=== PATIENT | male | born 1985 | race Caucasian/White ===

== ENCOUNTER 2018-06-04 17:01 | Emergency (ER) | payer SELFPAY ==
[2018-06-04] MEDS ORDERED: Sodium Chloride 0.9% 10 ML Syringe FLUSH PRN (17:14)
[2018-06-04] MEDS ORDERED: HYDROmorphone 2 MG/ML SDV IVPUSH ONE (17:15)
[2018-06-04] MEDS ORDERED: Pantoprazole 40 MG Vial IVPUSH ONE (17:15)
[2018-06-04] MEDS ORDERED: Promethazine 12.5 MG in Sodium Chloride 0.9% 50 ML IV ONE (17:17)
[2018-06-04] MEDS ORDERED: Sodium Chloride 0.9% 1,000 ML IV ONE (17:20)
--- NOTE | 2018-06-04 17:25 | EDM.PDOC ---
ED HPI GENERAL MEDICAL PROBLEM - General Chief Complaint: Abdominal Pain Stated Complaint: SEVERE ABDOMINAL PAIN Time Seen by Provider: 06/04/18 17:21 Source of Information: Reports: Patient History Limitations: Reports: No Limitations - History of Present Illness INITIAL COMMENTS - FREE TEXT/NARRATIVE: Presents with RUQ abdominal pain since yesterday, worse x 3 hours associated with N/V/D. Similar symptoms qmonth, but never this severe. Has not sought medical attention regarding this issue. No prior h/o abdominal surgeries. Duration: Day(s): (2) Location: Reports: Abdomen Quality: Reports: Dull Severity: Moderate Associated Symptoms: Reports: Nausea/Vomiting RUQ Pain Score (Numeric/FACES): 10 - Related Data Allergies Allergy/AdvReac Type Severity Reaction Status Date / Time codeine Allergy Hives Verified 06/04/18 18:00 Home Meds: Home Meds Acetaminophen/HYDROcodone [[place] 325-5 MG] 1 - 2 tab PO Q6H PRN #15 tab [Rx] Ciprofloxacin HCl [Cipro] 500 mg PO BID 7 Days #14 tablet 06/04/18 [Rx] Pantoprazole Sodium [Protonix] 40 mg PO DAILY #15 tab 06/04/18 [Rx] Promethazine [Phenergan] 25 mg PO Q6H PRN #12 tab 06/04/18 [Rx] metroNIDAZOLE [Flagyl] 500 mg PO TID 7 Days #21 tab 06/04/18 [Rx] Past Medical History - Past Health History Medical/Surgical History: Denies Medical/Surgical History Psychiatric History: Reports: Anxiety, Depression, Mood Swings Social & Family History - Tobacco Use Smoking Status *Q: Current Every Day Smoker Tobacco Use Within Last Twelve Months: Cigarettes - Alcohol Use Alcohol Use History: Yes Alcohol Use in Last Twelve Months: Yes Alcohol Use Frequency: Rarely - Recreational Drug Use Recreational Drug Use: No ED ROS GENERAL - Review of Systems Review Of Systems: ROS reveals no pertinent complaints other than HPI. ED EXAM, GI/ABD - Physical Exam Exam: See Below Exam Limited By: No Limitations General Appearance: Alert, WD/WN, Mild Distress Ears: Normal External Exam Nose: Normal Inspection Throat/Mouth: No Airway Compromise Head: Atraumatic, Normocephalic Neck: Supple Respiratory/Chest: No Respiratory Distress, Lungs Clear, Normal Breath Sounds Cardiovascular: Regular Rate, Rhythm, No Murmur, No Rub GI/Abdominal Exam: Normal Bowel Sounds, Soft, No Distention, No Mass, Tender ( moderate RUQ) Back Exam: Full Range of Motion Extremities: Normal Inspection Neurological: Alert, Oriented, Normal Cognition Psychiatric: Normal Affect, Normal Mood Skin Exam: Warm, Dry, Intact, Normal Color, No Rash Course - Vital Signs Last Recorded V/S: Last Vital Signs Temp 36.4 C 06/04/18 17:01 Pulse 58 L 06/04/18 17:01 Resp 20 06/04/18 17:01 BP 158/111 H 06/04/18 17:01 Pulse Ox 97 06/04/18 17:01 - Orders/Labs/Meds Orders: Active Orders 24 hr Category Date Time Status Abdomen Pelvis w Cont [CT] Stat Exams 06/04/18 17:26 Taken UA W/MICROSCOPIC [URIN] Stat Lab 06/04/18 18:36 Ordered Ciprofloxacin [Ciprofloxacin HCl] Med 06/04/18 18:48 Once 500 mg PO ONETIME ONE Sodium Chloride 0.9% [Saline Flush] Med 06/04/18 17:14 Active 10 ml FLUSH ASDIRECTED PRN metroNIDAZOLE [Flagyl] Med 06/04/18 18:50 Once 500 mg PO ONETIME ONE Saline Lock Insert [OM.PC] Routine Oth 06/04/18 17:14 Ordered Medication Orders Sodium Chloride (Saline Flush) 10 ml FLUSH ASDIRECTED PRN PRN Reason: Keep Vein Open Last Admin: 06/04/18 17:32 Dose: 10 ml Labs: Laboratory Tests 06/04/18 06/04/18 06/04/18 Range/Units 17:24 17:24 17:24 WBC 12.6 H (4.5-12.0) X10-3/uL RBC 5.43 (4.30-5.75) x10(6)uL Hgb 17.1 H (11.5-15.5) g/dL Hct 49.7 (30.0-51.3) % MCV 91.6 (80-96) fL MCH 31.5 (27.7-33.6) pg MCHC 34.4 (32.2-35.4) g/dL RDW 11.8 (11.5-15.5) % Plt Count 304 (125-369) X10(3)uL MPV 8.3 (7.4-10.4) fL Neut % (Auto) 77.8 (46-82) % Lymph % (Auto) 15.3 (13-37) % [place] % (Auto) 5.7 (4-12) % Eos % (Auto) 1 (1.0-5.0) % Baso % (Auto) 0 (0-2) % Neut # (Auto) 9.9 H (1.6-8.3) # Lymph # (Auto) 1.9 (0.6-5.0) # [place] # (Auto) 0.7 (0.0-1.3) # Eos # (Auto) 0.1 (0.0-0.8) # Baso # (Auto) 0.0 (0.0-0.2) # PT 10.0 (8.7-11.1) INR 1.03 (0.89-1.13) Sodium 143 (135-145) mmol/L Potassium 3.9 (3.5-5.3) mmol/L Chloride 106 (100-110) mmol/L Carbon Dioxide 25 (21-32) mmol/L BUN 9 (7-18) mg/dL Creatinine 0.8 (0.70-1.30) mg/dL Est Cr Clr Drug Dosing TNP Estimated GFR (MDRD) > 60 (>60) BUN/Creatinine Ratio 11.3 (9-20) Glucose 107 (80-116) mg/dL Calcium 9.3 (8.6-10.2) mg/dL Total Bilirubin 0.3 (0.1-1.3) mg/dL AST 18 (5-25) IU/L ALT 40 H (12-36) U/L Alkaline Phosphatase 43 L (56-112) IU/L Total Protein 7.8 (6.0-8.0) g/dL Albumin 3.8 (3.5-5.2) g/dL Globulin 4.0 g/dL Albumin/Globulin Ratio 1.0 Amylase (25-115) U/L Urine Color (YELLOW) Urine Appearance (CLEAR) Urine pH (5.0-6.5) Ur Specific [place] (1.010-1.025) Urine Protein (NEGATIVE) mg/dL Urine Glucose (UA) (NEGATIVE) mg/dL Urine Ketones (NEGATIVE) mg/dL Urine Occult Blood (NEGATIVE) Urine Nitrite (NEGATIVE) Urine Bilirubin (NEGATIVE) Urine Urobilinogen (NEGATIVE) mg/dL Ur Leukocyte Esterase (NEGATIVE) Urine RBC (0) Urine WBC (0) Ur Squamous Epith Cells (NS,R,O) Urine Bacteria (NS) 06/04/18 06/04/18 Range/Units 17:24 18:36 WBC (4.5-12.0) X10-3/uL RBC (4.30-5.75) x10(6)uL Hgb (11.5-15.5) g/dL Hct (30.0-51.3) % MCV (80-96) fL MCH (27.7-33.6) pg MCHC (32.2-35.4) g/dL RDW (11.5-15.5) % Plt Count (125-369) X10(3)uL MPV (7.4-10.4) fL Neut % (Auto) (46-82) % Lymph % (Auto) (13-37) % [place] % (Auto) (4-12) % Eos % (Auto) (1.0-5.0) % Baso % (Auto) (0-2) % Neut # (Auto) (1.6-8.3) # Lymph # (Auto) (0.6-5.0) # [place] # (Auto) (0.0-1.3) # Eos # (Auto) (0.0-0.8) # Baso # (Auto) (0.0-0.2) # PT (8.7-11.1) INR (0.89-1.13) Sodium (135-145) mmol/L Potassium (3.5-5.3) mmol/L Chloride (100-110) mmol/L Carbon Dioxide (21-32) mmol/L BUN (7-18) mg/dL Creatinine (0.70-1.30) mg/dL Est Cr Clr Drug Dosing Estimated GFR (MDRD) (>60) BUN/Creatinine Ratio (9-20) Glucose (80-116) mg/dL Calcium (8.6-10.2) mg/dL Total Bilirubin (0.1-1.3) mg/dL AST (5-25) IU/L ALT (12-36) U/L Alkaline Phosphatase (56-112) IU/L Total Protein (6.0-8.0) g/dL Albumin (3.5-5.2) g/dL Globulin g/dL Albumin/Globulin Ratio Amylase 23 L (25-115) U/L Urine Color Yellow (YELLOW) Urine Appearance Clear (CLEAR) Urine pH 5.0 (5.0-6.5) Ur Specific [place] 1.020 (1.010-1.025) Urine Protein Negative (NEGATIVE) mg/dL Urine Glucose (UA) Normal (NEGATIVE) mg/dL Urine Ketones Negative (NEGATIVE) mg/dL Urine Occult Blood Negative (NEGATIVE) Urine Nitrite Negative (NEGATIVE) Urine Bilirubin Negative (NEGATIVE) Urine Urobilinogen Normal (NEGATIVE) mg/dL Ur Leukocyte Esterase Negative (NEGATIVE) Urine RBC 0-5 (0) Urine WBC Not seen (0) Ur Squamous Epith Cells Rare (NS,R,O) Urine Bacteria Rare H (NS) Meds: Medications Generic Name Dose Route Start Last Admin Trade Name Freq PRN Reason Stop Dose Admin Sodium Chloride 10 ml 06/04/18 17:14 06/04/18 17:32 Saline Flush FLUSH 10 ml ASDIRECTED PRN Administration Keep Vein Open Discontinued Medications Generic Name Dose Route Start Last Admin Trade Name Freq PRN Reason Stop Dose Admin Hydromorphone HCl 1 mg 06/04/18 17:15 06/04/18 17:30 Dilaudid IVPUSH 06/04/18 17:16 1 mg ONETIME ONE Administration Promethazine HCl 12.5 mg/ 50.5 mls @ 200 mls/hr 06/04/18 17:17 06/04/18 17:33 Sodium Chloride IV 06/04/18 17:32 200 mls/hr ONETIME ONE Administration Sodium Chloride 1,000 mls @ 999 mls/hr 06/04/18 17:20 06/04/18 17:31 Normal Saline IV 06/04/18 18:20 999 mls/hr .BOLUS ONE Administration Iopamidol 150 ml 06/04/18 17:51 06/04/18 18:16 Isovue-370 (76%) IV 06/04/18 17:52 118 ml ONETIME ONE Administration Pantoprazole Sodium 40 mg 06/04/18 17:15 06/04/18 17:31 Protonix Iv IVPUSH 06/04/18 17:16 40 mg ONETIME ONE Administration - Radiology Interpretation Free Text/Narrative:: CT Abd/Pelvis w/ IV contrast: distended gallbladder, otherwise normal. No gallstones, GB wall not thickened, no pericholecystic fluid. - Re-Assessments/Exams Free Text/Narrative Re-Assessment/Exam: 06/04/18 18:52 Symptoms improved. Departure - Departure Time of Disposition: 18:52 Disposition: Home, Self-Care 01 Condition: Good Clinical Impression: RUQ abdominal pain, Biliary colic - Discharge Information *PRESCRIPTION DRUG MONITORING PROGRAM REVIEWED*: Yes *COPY OF PRESCRIPTION DRUG MONITORING REPORT IN PATIENT [place]: Not Applicable Prescriptions: Acetaminophen/HYDROcodone [[place] 325-5 MG] 1 - 2 tab PO Q6H PRN #15 tab PRN Reason: Pain Ciprofloxacin HCl [Cipro] 500 mg PO BID 7 Days #14 tablet metroNIDAZOLE [Flagyl] 500 mg PO TID 7 Days #21 tab Pantoprazole Sodium [Protonix] 40 mg PO DAILY #15 tab Promethazine [Phenergan] 25 mg PO Q6H PRN #12 tab PRN Reason: Pain Instructions: Biliary Colic, Adult, Abdominal Pain, Adult, [id number], Gallbladder Eating Plan Referrals: Cresencio Drake MD [Primary Care Provider] - Ruben Ugarte MD [Physician] - Forms: ED Department Discharge Additional Instructions: Schedule outpatient Gallbladder Ultrasound. Follow up with general surgery in 2- 3 days. Fill prescriptions and take medications as directed. Avoid spicy and fatty foods. Do not drink alcohol while taking Flagyl. Return to the ER if symptoms worsen. - My Orders Last 24 Hours: My Active Orders 06/04/18 17:14 Sodium Chloride 0.9% [Saline Flush] 10 ml FLUSH ASDIRECTED PRN Saline Lock Insert [OM.PC] Routine 06/04/18 17:26 Abdomen Pelvis w Cont [CT] Stat 06/04/18 18:36 UA W/MICROSCOPIC [URIN] Stat 06/04/18 18:48 Ciprofloxacin [Ciprofloxacin HCl] 500 mg PO ONETIME ONE 06/04/18 18:50 metroNIDAZOLE [Flagyl] 500 mg PO ONETIME ONE - Assessment/Plan Last 24 Hours: My Active Orders 06/04/18 17:14 Sodium Chloride 0.9% [Saline Flush] 10 ml FLUSH ASDIRECTED PRN Saline Lock Insert [OM.PC] Routine 06/04/18 17:26 Abdomen Pelvis w Cont [CT] Stat 06/04/18 18:36 UA W/MICROSCOPIC [URIN] Stat 06/04/18 18:48 Ciprofloxacin [Ciprofloxacin HCl] 500 mg PO ONETIME ONE 06/04/18 18:50 metroNIDAZOLE [Flagyl] 500 mg PO ONETIME ONE
[2018-06-04] MEDS ORDERED: Iopamidol 755 MG/ML 150 ML Bottle IV ONE (17:51)
[2018-06-04] MEDS ORDERED: Ciprofloxacin 500 MG Tab PO ONE (18:48)
[2018-06-04] MEDS ORDERED: metroNIDAZOLE 500 MG Tab PO ONE (18:50)
[2018-06-04 19:04] VITALS: BP 161/96
--- NOTE | 2018-06-05 10:09 | CT ---
INDICATION: Right upper quadrant pain for four hours. CT ABDOMEN AND PELVIS WITH CONTRAST: Spiral 2.5 mm axial sections were obtained through the abdomen and pelvis with IV contrast (118 mL Isovue-370 at 2.8 mL per second) with sagittal and coronal reconstructions, 06/04/2018 - no comparisons. Total exam DLP = 1382.51 mGy-cm. The lower lung bowers and pleural spaces visualized appeared normal. The gallbladder is enlarged, measuring approximately 11.4 cm. No wall thickening, calculi, or sludge was seen. No pericholecystic fluid was noted. The findings may represent a physiologically distended gallbladder; however, the possibility of cholecystitis cannot be entirely excluded and in a patient with right upper quadrant pain, gallbladder/right upper quadrant ultrasound is recommended for further evaluation. The liver had a normal appearance. The adrenal glands and kidneys appeared normal. The appendix was visualized on coronal images 48-52. It was also visualized on axial images 121-128. The spleen, pancreas, adrenal glands, and kidneys appeared normal. No retroperitoneal masses were identified. No free air or bowel obstruction was suggested. The urinary bladder was unremarkable. The prostate did not appear enlarged. No hernia was seen. No organomegaly, mass, lesions, or free fluid collections were otherwise suggested in the abdomen or pelvis. The stomach appeared normal. IMPRESSION: Prominent gallbladder with CT abdomen and pelvis otherwise unremarkable. In a patient with right upper quadrant pain, a gallbladder ultrasound/right upper quadrant ultrasound may be helpful for further evaluation correlate clinically. The report was called to Dr. Schroeder at 1840 hours. [facility]ITALHyacinth
== END 2018-06-04 19:11 | disposition home or self-care (01) ==
LOC: FB.ED 17:01
DX: K80.50 Calculus of bile duct without cholangitis or cholecystitis without obstruction (principal); F17.210 Nicotine dependence, cigarettes, uncomplicated; Z88.5 Allergy status to narcotic agent; Z79.899 Other long term (current) drug therapy
CPT/HCPCS: 36415; 74177; 80053; 81001; 82150; 85025; 85610; 96361; 96374; 96375; 99284; A9270; C9113; J1170; J2550; J7030; J7050; Q9967